=== PATIENT | female | born 1940 | race Caucasian/White ===

== ENCOUNTER 2020-07-30 21:20 | Outpatient (CLI) | payer MEDICARE, SELFPAY ==
[2020-07-30 22:25] LABS: Anion Gap 15.8 (5-19); Blood Urea Nitrogen 8 mg/dL (8-23); Calcium 8.4 mg/dL (8.5-10.5); Carbon Dioxide 26 mmol/L (22-29); Chloride 104 mmol/L (98-107); Glucose 91 mg/dL (65-115); Osmolality Calculated 294 mOsm/kg (285-295); Sodium 143 mmol/L (136-145)
[2020-07-30 22:28] LABS: Potassium 2.8 mmol/L (3.5-5.1)
== END 2020-07-30 21:21 | disposition home or self-care (01) ==
LOC: LAB 21:31
PROVIDERS: Visit Provider Internal Medicine
DX: E87.5 Hyperkalemia (principal); N19 Unspecified kidney failure; L03.90 Cellulitis, unspecified
CPT/HCPCS: 80048